=== PATIENT | male | born 1935 | race Caucasian/White ===

== ENCOUNTER 2019-12-10 23:08 | Inpatient (IN) ==
[2019-12-10] MEDS ORDERED: Heparin 1,000 UNITS/500 mL 500 ML ONE (23:15)
[2019-12-10] MEDS ORDERED: 0.9 % Sodium Chloride 2,000 ML ONE (23:15)
[2019-12-10] MEDS ORDERED: *HR* Heparin 10,000 UNIT/10 ML VIAL ONE (23:15)
[2019-12-10] MEDS ORDERED: Nitroglycerin 1,000 MCG/10 ML VIAL IV ONE (23:15)
[2019-12-10] MEDS ORDERED: ISOVUE-370 200 ML INFUS..BTL ONE (23:15)
[2019-12-11] MEDS ORDERED: *HR* Midazolam HCl 2 MG/2 ML VIAL ONE (00:22)
[2019-12-11] MEDS ORDERED: *HR* FentaNYL (PF) 100 MCG/2 ML VIAL ONE (00:22)
[2019-12-11] MEDS ORDERED: ISOVUE-370 200 ML INFUS..BTL ONE (00:56)
[2019-12-11] MEDS ORDERED: Ondansetron 4 MG/2 ML VIAL IVP PRN (01:59)
[2019-12-11] MEDS ORDERED: Naloxone 0.4 MG/ML INJ IVP PRN (01:59)
[2019-12-11] MEDS ORDERED: Perflutren Lipid Microsphere 1.3 ML in 0.9 % Sodium Chloride 8.7 ML IVP PRN ×2 (02:01→05:33)
[2019-12-11] MEDS ORDERED: 0.9 % Sodium Chloride 1,000 ML ONE (02:25)
[2019-12-11 02:49] LABS: Hemoglobin 12.7 g/dL (12.9-16.9)
[2019-12-11 04:24] LABS: Adenovirus Not Detected (Not Detect); Bordetella Pertussis Not Detected (Not Detect); Chlamydophila pneumoniae Not Detected (Not Detect); Coronavirus 229E Not Detected (Not Detect); Coronavirus HKU1 Not Detected (Not Detect); Coronavirus NL63 Not Detected (Not Detect); Coronavirus OC43 Not Detected (Not Detect); Human Metapneumovirus Not Detected (Not Detect); Human Rhinovirus/Enterovirus Not Detected (Not Detect); Influenza A Subtype 2009 H1 Not Detected (Not Detect); Influenza B Not Detected (Not Detect); Mycoplasma pneumoniae Not Detected (Not Detect); Parainfluenza Virus 1 Not Detected (Not Detect); Parainfluenza Virus 2 Not Detected (Not Detect); Parainfluenza Virus 3 Not Detected (Not Detect); Parainfluenza Virus 4 Not Detected (Not Detect); Respiratory Syncytial Virus Not Detected (Not Detect)
[2019-12-11 04:37] LABS: Basophils % 0.2 %; Eosinophils % 0.2 %; Hematocrit 35.7 % (37.5-50.1); Hemoglobin 11.9 g/dL (12.9-16.9); Immature Granulocytes % 0.9 % (0-4); Lymphocytes # 0.9 K/mcL (0.6-4.6); Mean Corpuscular HGB Conc 33.3 g/dL (31.6-35.5); Mean Corpuscular Hemoglobin 32.5 pg (28.0-33.3); Mean Corpuscular Volume 97.5 fL (83.0-100.0); Mean Platelet Volume 10.3 fL (9.4-12.4); Monocytes # 0.5 K/mcL (0.0-1.3); Monocytes % 5.8 %; Neutrophils # 7.6 K/mcL (1.6-8.9); Platelet Count 156 K/mcL (140-400); Red Blood Count 3.66 M/mcL (4.19-5.50); Red Cell Distribution Width 12.6 % (11.5-14.5); Segmented Neutrophils % 82.9 %; White Blood Count 9.1 K/mcL (4.3-11.1)
[2019-12-11 04:44] LABS: INR 1.1; Prothrombin Time 12.7 Seconds (9.4-12.1)
[2019-12-11 04:46] LABS: Activated Partial Thrombo Time 74.5 Seconds (26.0-36.0)
[2019-12-11 04:56] LABS: Chol/HDL Ratio 5.2 (0-4.9)
[2019-12-11 05:06] LABS: Alanine Aminotransferase 18 Units/L (7-52); Albumin 3.6 g/dL (3.5-5.7); Albumin/Globulin Ratio 1.9 (1.1-2.2); Alkaline Phosphatase 84 Units/L (34-104); Aspartate Amino Transferase 57 Units/L (13-39); BUN/Creatinine Ratio 17 (6-26); Bilirubin,Total 0.5 mg/dL (0.3-1.0); Blood Urea Nitrogen 14 mg/dL (8-23); Calcium 8.6 mg/dL (8.6-10.3); Carbon Dioxide 25 mEq/L (23-29); Chloride 108 mEq/L (98-107); Globulin 1.9 g/dL (2.4-3.5); Glucose 165 mg/dL (70-105); Osmolality,Calculated 288 (280-300); Potassium 4.6 mEq/L (3.5-5.1); Sodium 137 mEq/L (136-145); Total Protein 5.5 g/dL (6.4-8.9); Troponin I 13.49 ng/mL (< 0.04); eGFR For African Americans > 60 (> 60); eGFR For Non-African Americans > 60 (> 60)
[2019-12-11] MEDS ORDERED: Ipratropium/Albuterol Neb 3 ML IH PRN (05:55)
[2019-12-11 06:07] LABS: Estimated Average Glucose 114 mg/dl
[2019-12-11] MEDS: 0.9 % Sodium Chloride 1,000 ML IVC SCH ×2 (06:24→16:30)
[2019-12-11] MEDS: Aspirin 81 MG TAB.CHEW PO SCH (07:32)
[2019-12-11] MEDS: *HR* Ticagrelor 90 MG TABLET PO SCH ×2 (07:32→19:47)
[2019-12-12 04:30] LABS: Basophils % 0.1 %; Eosinophils % 0.4 %; Hematocrit 28.5 % (37.5-50.1); Hemoglobin 9.7 g/dL (12.9-16.9); Immature Granulocytes % 0.4 % (0-4); Lymphocytes # 1.1 K/mcL (0.6-4.6); Lymphocytes % 15.4 %; Mean Corpuscular Hemoglobin 32.7 pg (28.0-33.3); Mean Platelet Volume 10.7 fL (9.4-12.4); Monocytes # 0.5 K/mcL (0.0-1.3); Monocytes % 7.4 %; Neutrophils # 5.5 K/mcL (1.6-8.9); Platelet Count 124 K/mcL (140-400); Red Blood Count 2.97 M/mcL (4.19-5.50); Red Cell Distribution Width 12.5 % (11.5-14.5); Segmented Neutrophils % 76.3 %; White Blood Count 7.2 K/mcL (4.3-11.1)
[2019-12-12] MEDS: *HR* Ticagrelor 90 MG TABLET PO SCH ×2 (07:43→22:24)
[2019-12-12] MEDS: Aspirin 81 MG TAB.CHEW PO SCH (07:44)
[2019-12-12] MEDS: 0.9 % Sodium Chloride 1,000 ML IVC SCH (08:50)
[2019-12-12 10:02] LABS: BUN/Creatinine Ratio 16 (6-26); Blood Urea Nitrogen 12 mg/dL (8-23); Calcium 8.7 mg/dL (8.6-10.3); Carbon Dioxide 25 mEq/L (23-29); Chloride 107 mEq/L (98-107); Glucose 104 mg/dL (70-105); Osmolality,Calculated 284 (280-300); Potassium 4.2 mEq/L (3.5-5.1); Sodium 137 mEq/L (136-145); eGFR For African Americans > 60 (> 60); eGFR For Non-African Americans > 60 (> 60)
[2019-12-12 12:12] LABS: Hematocrit 31.8 % (37.5-50.1)
[2019-12-12 12:14] LABS: Hemoglobin 10.1 g/dL (12.9-16.9)
[2019-12-12] MEDS ORDERED: Perflutren Lipid Microsphere 1.3 ML in 0.9 % Sodium Chloride 8.7 ML IVP PRN (14:56)
[2019-12-12] MEDS ORDERED: Ipratropium/Albuterol Neb 3 ML IH PRN (14:56)
[2019-12-12] MEDS ORDERED: Ondansetron 4 MG/2 ML VIAL IVP PRN (14:56)
[2019-12-12] MEDS ORDERED: Naloxone 0.4 MG/ML INJ IVP PRN (14:56)
[2019-12-12] MEDS ORDERED: rOPINIRole 0.25 MG TABLET PO SCH ×2 (21:00)
[2019-12-13 07:48] LABS: Basophils % 0.2 %; Eosinophils # 0.1 K/mcL (0.0-0.6); Eosinophils % 0.9 %; Hematocrit 28.7 % (37.5-50.1); Hemoglobin 9.8 g/dL (12.9-16.9); Immature Granulocytes % 0.5 % (0-4); Lymphocytes # 0.9 K/mcL (0.6-4.6); Lymphocytes % 14.8 %; Mean Corpuscular HGB Conc 34.1 g/dL (31.6-35.5); Mean Corpuscular Volume 93.8 fL (83.0-100.0); Mean Platelet Volume 11.1 fL (9.4-12.4); Monocytes # 0.5 K/mcL (0.0-1.3); Monocytes % 7.9 %; Neutrophils # 4.4 K/mcL (1.6-8.9); Platelet Count 134 K/mcL (140-400); Red Blood Count 3.06 M/mcL (4.19-5.50); Red Cell Distribution Width 12.3 % (11.5-14.5); Segmented Neutrophils % 75.7 %; White Blood Count 5.8 K/mcL (4.3-11.1)
[2019-12-13 08:01] LABS: BUN/Creatinine Ratio 15 (6-26); Blood Urea Nitrogen 11 mg/dL (8-23); Calcium 9.1 mg/dL (8.6-10.3); Carbon Dioxide 27 mEq/L (23-29); Chloride 105 mEq/L (98-107); Glucose 99 mg/dL (70-105); Osmolality,Calculated 283 (280-300); Potassium 3.9 mEq/L (3.5-5.1); Sodium 137 mEq/L (136-145); eGFR For African Americans > 60 (> 60); eGFR For Non-African Americans > 60 (> 60)
[2019-12-13] MEDS ORDERED: Aspirin 81 MG TAB.CHEW PO SCH (09:00)
[2019-12-13] MEDS ORDERED: lisinopriL 5 MG TABLET PO SCH (09:00)
[2019-12-13] MEDS: *HR* Ticagrelor 90 MG TABLET PO SCH (10:23)
[2019-12-13 11:15] VITALS: BP 150/73
[2019-12-13] MEDS ORDERED: carvediloL 6.25 MG TABLET PO SCH (17:00)
== END 2019-12-13 12:20 | disposition home or self-care (01) | DRG 246 ==
LOC: ICNU → SUATTDRO 12-11 02:33 → 3ANU 12-12 16:54
PROVIDERS: ADMIT Internal Medicine; ATTEND Family Medicine